=== PATIENT | female | born 1955 | race Caucasian/White ===

== ENCOUNTER 2024-02-06 16:10 | Emergency (ER) | payer MEDICARE | END 2024-02-06 20:32 | disposition home or self-care (01) | LOC: JP.ED 16:10 | DX: S82.65XA Nondisplaced fracture of lateral malleolus of left fibula, initial encounter for closed fracture (principal); E78.00 Pure hypercholesterolemia, unspecified; Z79.899 Other long term (current) drug therapy; Z88.0 Allergy status to penicillin; X50.1XXA Overexertion from prolonged static or awkward postures, initial encounter | CPT/HCPCS: 29515; 73610-LT; 99283-25 ==